=== PATIENT | male | born 1970 | race African-American/Black ===

== ENCOUNTER 2019-07-09 22:38 | Emergency (ER) | payer OTHER ==
[~2019-07-09] VITALS: Ht 180.3 cm; Wt 98.9 kg
[2019-07-09] MEDS ORDERED: CLINDAMYCIN 900 MG/6 ML VIAL ONE (23:02)
[2019-07-09] MEDS ORDERED: PIPERACILLIN /TAZOBACTAM 3.375 G VIAL IV ONE (23:02)
[2019-07-09] MEDS ORDERED: KETOROLAC TROMETHAMINE INJ 30 MG/ML VIAL ONE (23:06)
[2019-07-09] MEDS ORDERED: TRAMADOL HCL 50 MG TABLET ONE (23:06)
--- NOTE | 2019-07-09 23:25 | NUR ---
BLOOD CULTURES DRAWN AND SENT TO LAB
[2019-07-09] MEDS ORDERED: KETOROLAC TROMETHAMINE INJ 30 MG/ML VIAL IV ONE (23:30)
[2019-07-09] MEDS ORDERED: TRAMADOL HCL 50 MG TABLET PO ONE (23:30)
[2019-07-09] MEDS ORDERED: CLINDAMYCIN 600 MG in IV D5W 100 ML IV ONE (23:30)
--- NOTE | 2019-07-09 23:33 | NUR ---
PATIENT CAME TO ER BED 14 C/O RIGHT HAND SWELLING 2x DAYS. PATIENT STATES THAT HE HAS BEEN TAKING BACTRIM WITH NO IMPROVEMENT. AAOX4. UNABLE TO FULLY MAKE A FIST WITH RIGHT ARM. ABLE TO WRIGGLE FINGERS AND WRIST.
--- NOTE | 2019-07-10 00:03 | NUR ---
IV removed. Catheter intact and site benign. Pressure and 4x4 applied to site. No bleeding noted. Patient discharged to home in stable condition. Written and verbal after care instructions given. Patient verbalizes understanding of instruction.
[2019-07-10 00:18] VITALS: BP 138/88
== END 2019-07-10 00:03 | disposition home or self-care (01) ==
LOC: ER 22:38
DX: L03.113 Cellulitis of right upper limb (principal); I10 Essential (primary) hypertension; Z98.890 Other specified postprocedural states; Z88.0 Allergy status to penicillin
CPT/HCPCS: 87040 ×2; 96365; 96375; 99284; J1885; J3490 ×2; J7030; J7060; J2543